=== PATIENT | female | born 1990 | race Hispanic/Latino ===

== ENCOUNTER 2017-08-06 19:06 | Emergency (ER) | payer OTHER ==
--- OUTSIDE RECORDS SUMMARY | 2017-08-06 19:09 | XMS REPORT | Clinical Summary ---
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 Disp. Refills Start End Date Status Date metFORMIN (GLUCOPHAGE) Take 500 mg by mouth 03/09/20 01/03/20 Discontin 500 MG tablet daily . 15 17 ued ADVAIR DISKUS 250-50 Inhale 1 spray by mouth 03/09/20 01/03/20 Discontin mcg/dose diskus inhaler via inhaler daily . 15 17 ued furosemide (LASIX) 20 MG Take 20 mg by mouth 2 01/03/20 Discontin tablet (two) times daily. 17 ued promethazine (PHENERGAN) Take 25 mg by mouth every 01/03/20 Discontin 25 MG tablet 6 (six) hours as needed 17 ued for Nausea. hydrochlorothiazide Take 0.5 tablets (12.5 mg 7 tablet 0 07/11/19 Discontin (HYDRODIURIL) 25 MG total) by mouth daily. 16 17 ued tablet amoxicillin-clavulanate Take 1 tablet by mouth 20 tablet 0 01/03/20 01/13/20 (AUGMENTIN) 875-125 mg every 12 (twelve) hours 17 17 per tablet for 10 days. traMADol (ULTRAM) 50 mg Take 1 tablet (50 mg 20 tablet 0 01/03/20 tablet total) by mouth every 6 17 17 (six) hours as needed for up to 10 days. Max Daily Amount: 200 mg Active Problems Not on file Encounters Date Type Specialty Care Team Description 01/02/2017 Emergency Emergency Medicine Roscoe Fleming, Acute serous otitis media of left ear, recurrence not specified (Primary Dx);Left ear pain after 08/05/2016 Social History Tobacco Use Types Packs/Day Years Used Date Current Every Day Smoker Smokeless Tobacco: Never Used Alcohol Use Drinks/Week oz/Week Comments No Sex Assigned at Date Recorded Not on file Last Filed Vital Signs Vital Sign Reading Time Taken Blood Pressure 124/74 01/02/2017 10:10 AM CDT Pulse 75 01/02/2017 10:10 AM CDT Temperature 36.6 C (97.9 F) 01/02/2017 10:10 AM CDT Respiratory Rate 18 01/02/2017 10:10 AM CDT Oxygen Saturation 97% 01/02/2017 10:10 AM CDT Inhaled Oxygen - - Concentration Weight 91.6 kg (202 lb) 01/02/2017 10:10 AM CDT Height 165.1 cm (5' 5") 01/02/2017 10:10 AM CDT Body Mass Index 33.61 01/02/2017 10:10 AM CDT Plan of Treatment Not on file Results Not on fileafter 08/05/2016
== END 2017-08-06 20:15 | disposition short-term general hospital (02) ==
LOC: ER 19:06
DX: R52 Pain, unspecified (principal)

== ENCOUNTER 2018-08-06 19:24 | Emergency (ER) | payer OTHER ==
[~2018-08-06] VITALS: Ht 162.6 cm; Wt 97.5 kg
--- OUTSIDE RECORDS SUMMARY | 2018-08-06 19:27 | XMS REPORT ---
Author Author [facility] Address Unknown Phone Unavailable Care Team Providers Care Log Tumbler Name Role Phone EMELY MCLEAN Unavailable Unavailable Payers Payer Name Policy Type Policy Number Effective Date Expiration Date Problems This patient has no known problems. Allergies, Adverse Reactions, Alerts Allergy Name Allergy Type Status Severity Reaction(s) Onset Date Inactive Date Treating Clinician Comments Iodine and Iodide Containing Produc DA Active MO 2018-06-24 00:00:00 Latex, Natural Rubber DA Active MO 2018-06-24 00:00:00 Iodine and Iodide Containing Produc DA Active MO 2018-06-07 00:00:00 Latex, Natural Rubber DA Active MO 2018-06-07 00:00:00 Iodine and Iodide Containing Produc DA Active MO 2017-04-08 00:00:00 Latex, Natural Rubber DA Active MO 2017-04-08 00:00:00 MUSTARD DA Active 2015-04-26 00:00:00 Medications This patient has no known medications. Results Test Description Test Time Test Comments Text Results Atomic Results Result Comments - CT ABD PELVIS W/O CONT 2018-06-24 22:24:00 Name: SHERIFGEOVANI C [facility] : 1990 Age/S: 27 / F [address] Unit #: [id number] Loc: [place] [address] Phys: Kristina Rodgers [employer] WORK[employer] Acct: [id number] Dis Date: Status: REG ER PHONE #: [phone] Exam Date: 06/24/20182208 FAX #: [phone] Reason: FLANK PAIN EXAMS: CPT CODE: [id number] CT ABD PELVIS W/O CONT [id number] REASON FOR EXAM: FLANK PAIN EXAM ORDER DATE: 06/24/2018 9:19 PM Ordering Reginaldo: Kristina Rodgers NP PROCEDURE: - CT ABD PELVIS W/O CONT COMPARISON: 06/07/2018 FINDINGS: CT images of the abdomen and pelvis were obtained without IV and without oral contrast at 5mm. Dose reduction techniques were applied The liver, spleen, pancreas are grossly within normal limits. The gallbladder is unremarkable by CT. The urinary bladder is unremarkable. The colon, small bowel, and stomach are within normal limits without evidence of obstruction. The appendix is unremarkable. No evidence of free air or free fluid. The uterus is unremarkable. Bilateral tubal ligation clips present. IMPRESSION: Multiple small (0.1-0.3 cm) nonobstructing bilateral renal stones. No evidence of obstructive uropathy at 2224 Reported and signed by: Ken Vigil M.D. CC: Ana Laura Oliver MD; Kristina Rodgers NP Technologist:Zeenat Garcia RT(R) CTDI: DLP: Trnscb Date/Time: 06/24/2018 (2223) Lavinia Orig Print D/T: S: 06/24/2018 (2226) CTDI: DLP: PAGE 1 Signed Report BASIC METABOLIC PANEL 2018-06-24 21:45:00 SODIUM (test code=NA) 143 mmol/L 136-145 POTASSIUM (test code=K) 3.9 mmol/L 3.5-5.1 CHLORIDE (test code=CL) 110.0 mmol/L 98-107 CARBON DIOXIDE (test code=CO2) 25.0 mmol/L 21-32 ANION GAP (test code=GAP) 11.9 10-20 GLUCOSE (test code=GLU) 86 mg/dL 74-106 BLOOD UREA NITROGEN (test code=BUN) 10 mg/dL 7-18 GLOMERULAR FILTRATION RATE (test code=GFR) > 60 mL/min >=60 Estimated GFR by using Modified MDRD formula.Chronic kidney disease is defined as either kidney damageor GFR <60 mL/min/1.73 m2 for >3 months. CREATININE (test code=CREAT) 0.90 mg/dL 0.55-1.02 Note change in reference range due to change in reagent. BUN/CREATININE RATIO (test code=BUN/CREA) 11.0 10-20 CALCIUM (test code=CA) 8.6 mg/dL 8.5-10.1 HEPATIC FUNCTION [id number] 21:45:00* Test Item Value Reference Range Comments TOTAL PROTEIN (test code=PROT) 7.2 gram/dL 6.4-8.2 ALBUMIN (test code=ALB) 3.3 g/dL 3.4-5.0 GLOBULIN (test code=GLOB) 3.9 gram/dL 2.7-4.2 ALBUMIN/GLOBULIN RATIO (test code=A/G) 0.8 0.75-1.50 BILIRUBIN TOTAL (test code=BILT) 0.20 mg/dL 0.0-1.0 BILIRUBIN DIRECT (test code=BILD) 0.08 mg/dL 0.0-0.20 SGOT/AST (test code=AST) 15 IUnit/L 15-37 SGPT/ALT (test code=ALT) 28 IUnit/L 12-78 ALKALINE PHOSPHATASE TOTAL (test code=ALKP) 54 IUnit/L 45-117 Note change in reference range due to change in reagent. [id number] 21:45:00* Test Item Value Reference Range Comments LIPASE (test code=LIP) 76 U/L 73.0-393.0 HCG SERUM [id number] 21:45:00* Test Item Value Reference Range Comments HCG SERUM BETA (test code=HCG) < 1.0 mIU/mL 0-3 INTERPRETATION:B-HCG LEVELS <5 SHOULD BE CONSIDERED "NEGATIVE." *WHEN BODERLINE RESULTS ARE ENCOUNTERED,PATIENT SAMPLESSHOULD BE REDRAWN 48 HOURS. 0-1 WEEKS AFTER CONCEPTION 5-50 MIU/ML1-2 WEEKS AFTER CONCEPTION 50-500 MIU/ML2-3 WEEKS AFTER CONCEPTION 100 -5,000 MIU/ML3-4 WEEKS AFTER CONCEPTION 500-10,000 MIU/ML4-5 WEEKS AFTER CONCEPTION 1000 -50,000 MIU/ML5-6 WEEKS AFTER CONCEPTION 10,000-100,000 MIU/ML6-8 WEEKS AFTER CONCEPTION 15,000- 200,000 MIU/ML2-3 MONTHS AFTER CONCEPTION 10,000-100,000 MIU/ML BASIC METABOLIC [id number] 21:32:00* Test Item Value Reference Range Comments SODIUM (test code=NA) 143 mmol/L 136-145 POTASSIUM (test code=K) 3.9 mmol/L 3.5-5.1 CHLORIDE (test code=CL) 110.0 mmol/L 98-107 CARBON DIOXIDE (test code=CO2) mmol/L 21-32 ANION GAP (test code=GAP) 10-20 GLUCOSE (test code=GLU) mg/dL 74-106 BLOOD UREA NITROGEN (test code=BUN) mg/dL 7-18 GLOMERULAR FILTRATION RATE (test code=GFR) mL/min >=60 CREATININE (test code=CREAT) mg/dL 0.55-1.02 BUN/CREATININE RATIO (test code=BUN/CREA) 10-20 CALCIUM (test code=CA) mg/dL 8.5-10.1 HEPATIC FUNCTION [id number] 21:32:00* Test Item Value Reference Range Comments TOTAL PROTEIN (test code=PROT) gram/dL 6.4-8.2 ALBUMIN (test code=ALB) g/dL 3.4-5.0 GLOBULIN (test code=GLOB) gram/dL 2.7-4.2 ALBUMIN/GLOBULIN RATIO (test code=A/G) 0.75-1.50 BILIRUBIN TOTAL (test code=BILT) mg/dL 0.0-1.0 BILIRUBIN DIRECT (test code=BILD) mg/dL 0.0-0.20 SGOT/AST (test code=AST) IUnit/L 15-37 SGPT/ALT (test code=ALT) IUnit/L 12-78 ALKALINE PHOSPHATASE TOTAL (test code=ALKP) IUnit/L 45-117 [id number] 21:32:00* Test Item Value Reference Range Comments LIPASE (test code=LIP) U/L 73.0-393.0 HCG SERUM [id number] 21:32:00* Test Item Value Reference Range Comments HCG SERUM BETA (test code=HCG) mIU/mL 0-3 URINALYSIS [id number] 21:18:00* Test Item Value Reference Range Comments UA COLOR (test code=COLU) COLORLESS YELLOW UA APPEARANCE (test code=APPU) CLEAR CLEAR UA GLUCOSE DIPSTICK (test code=DGLUU) NEGATIVE mg/dL NEGATIVE UA BILIRUBIN DIPSTICK (test code=BILU) NEGATIVE mg/dL NEGATIVE UA KETONE DIPSTICK (test code=KETU) Negative mg/dL NEGATIVE UA SPECIFIC GRAVITY (test code=SGU) 1.003 1.001-1.035 UA BLOOD DIPSTICK (test code=JUNG) 2+ (Moderate) NEGATIVE UA PH DIPSTICK (test code=CHRISTIAN) 6.0 5.0-8.0 UA PROTEIN DIPSTICK (test code=PROU) Negative mg/dL NEGATIVE UA UROBILINIOGEN DIPSTICK (test code=URO) NEGATIVE mg/dL NEGATIVE UA NITRITE DIPSTICK (test code=ETHAN) NEGATIVE NEGATIVE UA LEUKOCYTE ESTERASE W REFLEX (test code=LEUUR) NEGATIVE NEGATIVE UA WBC (test code=WBCU) 0-5 #/HPF 0-5 UA RBC (test code=RBCU) 0-2 #/HPF 0-5 Urine Source? Clean CatchCBC W/O [id number] 21:13:00* Test Item Value Reference Range Comments WHITE BLOOD CELL (test code=WBC) 12.7 K/mm3 4.5-12.5 RED BLOOD CELL (test code=RBC) 4.45 mill/mm3 3.7-5.2 HEMOGLOBIN (test code=HGB) 12.6 gram/dL 11.5-15.5 HEMATOCRIT (test code=HCT) 39.7 % 36.0-46.0 MEAN CELL VOLUME (test code=MCV) 89.2 fL 80-98 MEAN CELL HGB (test code=MCH) 28.3 picogram 27.0-33.0 MEAN CELL HGB CONCETRATION (test code=MCHC) 31.7 gram/dL 33.0-36.0 RED CELL DISTRIBUTION WIDTH (test code=RDW) 12.6 % 11.6-16.2 PLATELET COUNT (test code=PLT) 338 K/mm3 150-450 MEAN PLATELET VOLUME (test code=MPV) 10.0 fL 6.7-11.0 CBC W/O [id number] 21:11:00* Test Item Value Reference Range Comments WHITE BLOOD CELL (test code=WBC) K/mm3 4.5-12.5 RED BLOOD CELL (test code=RBC) mill/mm3 3.7-5.2 HEMOGLOBIN (test code=HGB) 12.6 gram/dL 11.5-15.5 HEMATOCRIT (test code=HCT) 39.7 % 36.0-46.0 MEAN CELL VOLUME (test code=MCV) fL 80-98 MEAN CELL HGB (test code=MCH) picogram 27.0-33.0 MEAN CELL HGB CONCETRATION (test code=MCHC) gram/dL 33.0-36.0 RED CELL DISTRIBUTION WIDTH (test code=RDW) % 11.6-16.2 PLATELET COUNT (test code=PLT) K/mm3 150-450 MEAN PLATELET VOLUME (test code=MPV) fL 6.7-11.0 - XR L-SPINE 2/3 [id number] 15:37:00 FAX: Kristina Rodgers [place]: B St: REG Name: GEOVANI JUAREZ [facility] : [birth year] Age/S: 27/F [address] [facility] Unit #: [id number] Loc: [place] [address] Phys: Kristina Rodgers [employer] Acct: [id number] Dis Date: Status: REG ER PHONE #: [phone] Exam Date: 06/19/2018 1516 FAX #: [phone] Reason: PAIN S/P FALL EXAMS: CPT CODE: [id number] XR L-SPINE 2/3 VIEWS 39087 HISTORY: PAIN S/P FALL TECHNIQUE: AP, lateral, and lumbosacral views of the lumbar spine. FINDINGS: No acute fracture or subluxation. Vertebral body alignment is satisfactory. Vertebral body heights are preserved. Disc spaces are pres erved. No evident paraspinal soft tissue contour abnormality. Surgical cli ps projecting over the lower abdomen may represent tubal ligation clips. IMPRESSION: Negative radiographic examination of the lumbar spine. Electronically Signed by Patrice Chang MD on 01/2019 at 1535 Reported and signed by: Patrice Chang MD CC: Kristina Rodgers NP Technologist: Zeyad Lezama RT(R) Trnscrd Date/Time/By: 06/19/2018 (2956) : By: [email or web address] Orig Print D/T: S: (3515) PAGE 1 Signed Rep ort - XR C-SPINE 2-3 [id number] 15:36:00 FAX: Kristina Rodgers [place]: B St: REG Name: GEOVANI JUAREZ [facility] : [birth year] Age/S: 27/F [address] Unit #: [id number] Loc: [place] [address] Phys: Kristina Rodgers ie [employer] Acct: [id number] Dis Date: Status: REG ER PHONE #: [phone] Exam Date: 06/19/2018 1516 FAX #: [phone] Reason: PAIN S/P FALL EXAMS: CPT CODE: [id number] XR C-SPINE 2-3 VIEWS 06411 HISTORY: PAIN S/P FALL TECHNIQUE: AP, lateral, and open mouth odontoid views of the cervical s pine. COMPARISON: None FINDINGS: Crani ocervical and cervicothoracic articulations are appropriate. Vertebral bod y alignment is satisfactory. Vertebral body heights are preserved. Disc sp aces are preserved. No prevertebral soft tissue swelling. Lung apices are clear. IMPRESSION: 1. Negative cervica l spine x-ray. at 1536 Reported and signed by: Patrice Chang MD CC: Kristina Rodgers NP Technol ogist: Zeyad Teja RT(R) Trnscrd Date/Time/ By: 06/19/2018 (1530) : By: [email or web address] Orig Print D/T: S: 06/19/2018 (2 556) PAGE 1 Signed Report - XR WRIST 3 + V [id number] 15:25:00 FAX: Kristina Rodgers [place]: B St: REG Name: GEOVANI JUAREZ [facility] : [birth year] Age/S: 27/F [address] Unit #: [id number] Loc: [place] [address] Phys: Kristina Rodgers [employer] Acct: [id number] Dis Date: Status: REG ER PHONE #: [phone] Exam Date: 06/19/2018 1516 FAX #: [phone] Reason: PAIN S/P FALL EXAMS: CPT CODE: [id number] XR WRIST 3 + V RT [id number] REASON FOR EXAM: PAIN S/P FALL EXAM ORDER DATE: 06/19/2018 2:21 PM Ordering M.DLianet: Kristina Rodgers NP PROCEDURE: - XR HAND 3 + V RT, - XR WRIST 3 + V RT Comparison: Radiographs of the right hand June 02, 2015 FINDINGS: No acute fracture is seen. There is mild residual deformity of the fifth metacarpal from the patient's prior boxer fracture. The joints are appropriately aligned. Soft tissues are grossly within normal limits. IMPRESSION: No acute fracture or dislocation in the right hand or right wrist. Subtle deformity of the f ifth metacarpal from the patient's prior boxer fracture. Sowmya ctronically Signed by Patrice Chang MD on 06/19/2018 at 1526 Reported and signed by: Patrice Chang MD CC: Kristina Rodgers NP Technologist: Zeyad Lezama RT(R) Trnscrd Date/Time/By: 06/19/2018 (9281) : By: Vanessa [email or web address] Orig Print D/T: S: 06/19/2018 (4117) PAG E 1 Signed Report - XR HAND 3 + V [id number] 15:25:00 FAX: Kristina Rodgers [place]: B St: REG Name: GEOVANI JUAREZ [facility] : [birth year] Age/S: 27/F [address] Unit #: [id number] Loc: [place] [address] Phys: Kristina Rodgers [employer] Acct: [id number] Dis Date: Status: REG ER PHONE #: [phone] Exam Date: 06/19/2018 1516 FAX #: [phone] Reason: PAIN S/P FALL EXAMS: CPT CODE: [id number] XR HAND 3 + V RT [id number] REASON FOR EXAM: PAIN S/P FALL EXAM ORDER DATE: 06/19/2018 2:21 PM Ordering M.DLianet: Kristina Rodgers NP PROCEDURE: - XR HAND 3 + V RT, - XR WRIST 3 + V RT Comparison: Radiographs of the right hand June 02, 2015 FINDINGS: No acute fracture is seen. There is mild residual deformity of the fifth metacarpal from the patient's prior boxer fracture. The joints are appropriately aligned. Soft tissues are grossly within normal limits. IMPRESSION: No acute fracture or dislocation in the right hand or right wrist. Subtle deformity of the f ifth metacarpal from the patient's prior boxer fracture. Sowmya ctronically Signed by Patrice Chang MD on 06/19/2018 at 1525 Reported and signed by: Patrice Chang MD CC: Kristina Rodgers NP Technologist: Zeyad Lezama RT(R) Trnscrd Date/Time/By: 06/19/2018 (8673) : By: Vanessa [email or web address] Orig Print D/T: S: 06/19/2018 (7632) PAG E 1 Signed Report - CT ABD PELVIS [id number] 17:35:00 Name: GEOVANI GORMAN [facility] : 1990 Age/S: 27 / F [address] Unit #: [id number] Loc: [place] [address] Phys: Tristan Vang NP Acct: [id number] Dis Date: Status: REG ER PHONE #: [phone] Exam Date: 06/07/2018 1709 FAX #: [phone] Reason: RLQ PAIN EXAMS: CPT CODE: [id number] CT ABD PELVIS W/CONT 75861 EXAM: CT of the abdomen and pelvis with contrast; INFORMATION: Right lower quadrant pain; TECHNIQUE AND FINDINGS: CT dose reduction protocol; 5 mm cuts through the abdomen and pelvis during and after intravenous infusion of contrast material. The right and spleen of normal size and shape; no focal lesions. Homogeneous parenchymal enhancement. No abnormalities of the biliary system. Pancreas and adrenal glands are unremarkable. The early postcontrast study shows a 3 mm density in the right kidney which is suspicious for nonobstructing calyceal stone. There is a 13 mm right renal cyst. Otherwise normal parenchymal enhancement; no hydronephrosis. No acute bowel abnormalities. No pelvic mass lesions. Status post tubal ligation. Lung bases are clear. IMPRESSION: 1. No acute abdominal or pelvic abnormalities. 2. Suspicion of small nono bstructing calyceal stone in the right kidney. 3. Small right re nal cyst. at 0416 Reported and signed by: Bernardino Lora M.D. CC: Ga Pitt MD; Tristan Vang NP Technologist:KOREY CHEN, RT(R) CT CTDI: DLP: Trnscb Date/Time: 06/07/2018 (1735) Ethan Orig Print D/T: S: 06/07/2018 (1738) CTDI: DLP: PAGE 1 Signed Report - US TRANSVAGINAL NON [id number] 17:21:00 Name: GEOVANI GORMAN [facility] : 1990 Age/S: 27 / F [facility]: [id number] Loc: [place] [address] Phys: Tristan Vang NP Acct: [id number] Dis Date: Status: REG ER PHONE #: [phone] Exam Date: 06/07/2018 1650 FAX #: [phone] Reason: Pelvic Pain EXAMS: CPT CODE: [id number] [place] [address] EXAM: Pelvic and transvaginal ultrasound and duplex sonography; INFORMATION: Abdominal pain and pelvic pain; TECHNIQUE AND FINDINGS: Transabdominal and transvaginal grayscale imaging was combined with color Doppler sonography and spectral analysis. The uterus is of normal size and shape; it measures 10.1 x 4.4 x 5.3 cm. Unremarkable endometrial stripe, measuring 6 mm in thickness. No fluid collection within the endometrial canal. Nabothian cysts are seen in the cervix. The left ovary is of normal size and shape. It measures 3.3 x 2.1 x 3 cm. It shows normal flow pattern on Doppler exam. The right ovary was not seen. No solid or cystic adnexal lesion. No free fluid in the cul-de-sac. IMPRESSION: 1. Right ovary not seen but no evidence of adnexal lesion. 2. Otherwise unremarkable pelvic ultrasound. at 1721 Reported and signed by: Bernardino Lora M.D. CC: Tristan Vang NP Technologist: Elissa Morris Trnwib Date/Time: 06/07/2018 (1721) Ethan Orig Print D/T: S: 06/07/2018 (1725) Probe: [id number] PAGE 1 Signed Report - DUP AB/PEL/SC [id number] 17:21:00 Name: GEOVANI GORMAN [facility] : 1990 Age/S: 27 / F [address] Unit #: [id number] Loc: [place] [address] Phys: Denisha Vang NP Acct: [id number] Di s Date: Status: REG ER PHONE #: Exam Date: 06/07/2018 1650 FAX #: [phone] Reason: PELVIC PAIN EXAMS: CPT CODE: [id number] DUP AB/PEL/SC COMP 84648 EXAM: Pelvic and transvag inal ultrasound and duplex sonography; INFORMATION: Abdominal pain and pelvic pain; TECHNIQUE AND FINDINGS: Transabdominal and transvaginal grayscale imaging was combined with color Doppler sonography and spectral analysis. The uterus is of normal size and shape; it measures 10.1 x 4.4 x 5.3 cm. Unremarkable endometrial stripe, measuring 6 mm in thickness. No fluid collection within the endometrial canal. N abothian cysts are seen in the cervix. The left ovary is of normal size an d shape. It measures 3.3 x 2.1 x 3 cm. It shows normal flow pattern on Dop pler exam. The right ovary was not seen. No solid or cystic adnexal lesion . No free fluid in the cul-de-sac. IMPRESSION: 1. Right ovary not seen but no evidence of adnexal lesion. 2. Otherwise unr emarkable pelvic ultrasound. at 1721 Reported and signed by: Bernardino Lora M.D. CC: Tristan Vang NP Technologist: Elissa Morris Trnscb Date/Time: 019 (172) [email or web address] Orig Print D/T: S: 06/07/2018 (1725) Probe: PAGE 1 Signed Report - US PELVIS [id number] 17:21:00 Name: SHERIFDANNYGEOVANI C [facility] : 1990 Age/S: 27 / F [address] Unit #: [id number] Loc: [place] [address] Phys: Denisha Vang NP Acct: [id number] Di s Date: Status: REG ER PHONE #: Exam Date: 06/07/2018 1650 FAX #: Reason: PELVIC PAIN EXAMS: CPT CODE: [id number] US PELVIS COM PLETE 28211 EXAM: Pelvic and transvag inal ultrasound and duplex sonography; INFORMATION: Abdominal pain and pelvic pain; TECHNIQUE AND FINDINGS: Transabdominal and transvaginal grayscale imaging was combined with color Doppler sonography and spectral analysis. The uterus is of normal size and shape; it measures 10.1 x 4.4 x 5.3 cm. Unremarkable endometrial stripe, measuring 6 mm in thickness. No fluid collection within the endometrial canal. N abothian cysts are seen in the cervix. The left ovary is of normal size an d shape. It measures 3.3 x 2.1 x 3 cm. It shows normal flow pattern on Dop pler exam. The right ovary was not seen. No solid or cystic adnexal lesion . No free fluid in the cul-de-sac. IMPRESSION: 1. Right ovary not seen but no evidence of adnexal lesion. 2. Otherwise unr emarkable pelvic ultrasound. at 1721 Reported and signed by: Bernardino Lora M.D. CC: Tristan Vang NP Technologist: Elissa Morris Trnwib Date/Time: 019 (1721) [email or web address] Orig Print D/T: S: 06/07/2018 (9545) Probe: PAGE 1 Signed Report URINALYSIS [id number] 15:58:00* Test Item Value Reference Range Comments UA COLOR (test code=COLU) STRAW YELLOW UA APPEARANCE (test code=APPU) CLEAR CLEAR UA GLUCOSE DIPSTICK (test code=DGLUU) NEGATIVE mg/dL NEGATIVE UA BILIRUBIN DIPSTICK (test code=BILU) NEGATIVE mg/dL NEGATIVE UA KETONE DIPSTICK (test code=KETU) Negative mg/dL NEGATIVE UA SPECIFIC GRAVITY (test code=SGU) 1.009 1.001-1.035 UA BLOOD DIPSTICK (test code=JUNG) Negative NEGATIVE UA PH DIPSTICK (test code=CHRISTIAN) 6.0 5.0-8.0 UA PROTEIN DIPSTICK (test code=PROU) Negative mg/dL NEGATIVE UA UROBILINIOGEN DIPSTICK (test code=URO) NEGATIVE mg/dL NEGATIVE UA NITRITE DIPSTICK (test code=ETHAN) NEGATIVE NEGATIVE UA LEUKOCYTE ESTERASE W REFLEX (test code=LEUUR) NEGATIVE NEGATIVE UA WBC (test code=WBCU) 0-5 #/HPF 0-5 UA RBC (test code=RBCU) 0-2 #/HPF 0-5 UA EPITHELIAL CELLS (test code=EPIU) FEW per HPF FEW UA BACTERIA (test code=BACU) FEW #/HPF NONE UA MUCUS (test code=MUCU) FEW #/LPF FEW Urine Source? Clean CatchURINALYSIS [id number] 15:57:00* Test Item Value Reference Range Comments UA COLOR (test code=COLU) STRAW YELLOW UA APPEARANCE (test code=APPU) CLEAR CLEAR UA GLUCOSE DIPSTICK (test code=DGLUU) NEGATIVE mg/dL NEGATIVE UA BILIRUBIN DIPSTICK (test code=BILU) NEGATIVE mg/dL NEGATIVE UA KETONE DIPSTICK (test code=KETU) Negative mg/dL NEGATIVE UA SPECIFIC GRAVITY (test code=SGU) 1.009 1.001-1.035 UA BLOOD DIPSTICK (test code=JUNG) Negative NEGATIVE UA PH DIPSTICK (test code=CHRISTIAN) 6.0 5.0-8.0 UA PROTEIN DIPSTICK (test code=PROU) Negative mg/dL NEGATIVE UA UROBILINIOGEN DIPSTICK (test code=URO) NEGATIVE mg/dL NEGATIVE UA NITRITE DIPSTICK (test code=ETHAN) NEGATIVE NEGATIVE UA LEUKOCYTE ESTERASE W REFLEX (test code=LEUUR) NEGATIVE NEGATIVE UA WBC (test code=WBCU) 0-5 #/HPF 0-5 UA RBC (test code=RBCU) 0-2 #/HPF 0-5 UA EPITHELIAL CELLS (test code=EPIU) FEW per HPF FEW Urine Source? Clean CatchURINALYSIS [id number] 15:50:00* Test Item Value Reference Range Comments UA COLOR (test code=COLU) STRAW YELLOW UA APPEARANCE (test code=APPU) CLEAR CLEAR UA GLUCOSE DIPSTICK (test code=DGLUU) NEGATIVE mg/dL NEGATIVE UA BILIRUBIN DIPSTICK (test code=BILU) NEGATIVE mg/dL NEGATIVE UA KETONE DIPSTICK (test code=KETU) Negative mg/dL NEGATIVE UA SPECIFIC GRAVITY (test code=SGU) 1.009 1.001-1.035 UA BLOOD DIPSTICK (test code=JUNG) Negative NEGATIVE UA PH DIPSTICK (test code=CHRISTIAN) 6.0 5.0-8.0 UA PROTEIN DIPSTICK (test code=PROU) Negative mg/dL NEGATIVE UA UROBILINIOGEN DIPSTICK (test code=URO) NEGATIVE mg/dL NEGATIVE UA NITRITE DIPSTICK (test code=ETHAN) NEGATIVE NEGATIVE UA LEUKOCYTE ESTERASE W REFLEX (test code=LEUUR) NEGATIVE NEGATIVE UA WBC (test code=WBCU) per HPF 0-5 Urine Source? Clean CatchBASIC METABOLIC [id number] 15:00:00* Test Item Value Reference Range Comments SODIUM (test code=NA) 138 mmol/L 136-145 POTASSIUM (test code=K) 4.2 mmol/L 3.5-5.1 CHLORIDE (test code=CL) 106.0 mmol/L 98-107 CARBON DIOXIDE (test code=CO2) 27.0 mmol/L 21-32 ANION GAP (test code=GAP) 9.2 10-20 GLUCOSE (test code=GLU) 99 mg/dL 74-106 BLOOD UREA NITROGEN (test code=BUN) 9 mg/dL 7-18 GLOMERULAR FILTRATION RATE (test code=GFR) > 60 mL/min >=60 Estimated GFR by using Modified MDRD formula.Chronic kidney disease is defined as either kidney damageor GFR <60 mL/min/1.73 m2 for >3 months. CREATININE (test code=CREAT) 0.80 mg/dL 0.55-1.02 Note change in reference range due to change in reagent. BUN/CREATININE RATIO (test code=BUN/CREA) 11.5 10-20 CALCIUM (test code=CA) 9.5 mg/dL 8.5-10.1 HEPATIC FUNCTION [id number] 15:00:00* Test Item Value Reference Range Comments TOTAL PROTEIN (test code=PROT) 7.6 gram/dL 6.4-8.2 ALBUMIN (test code=ALB) 3.5 g/dL 3.4-5.0 GLOBULIN (test code=GLOB) 4.1 gram/dL 2.7-4.2 ALBUMIN/GLOBULIN RATIO (test code=A/G) 0.9 0.75-1.50 BILIRUBIN TOTAL (test code=BILT) 0.30 mg/dL 0.0-1.0 BILIRUBIN DIRECT (test code=BILD) < 0.05 mg/dL 0.0-0.20 SGOT/AST (test code=AST) 25 IUnit/L 15-37 SGPT/ALT (test code=ALT) 46 IUnit/L 12-78 ALKALINE PHOSPHATASE TOTAL (test code=ALKP) 62 IUnit/L 45-117 Note change in reference range due to change in reagent. [id number] 15:00:00* Test Item Value Reference Range Comments LIPASE (test code=LIP) 93 U/L 73.0-393.0 HCG SERUM [id number] 15:00:00* Test Item Value Reference Range Comments HCG SERUM QUAL (test code=HCGQL) NEGATIVE NEGATIVE This HCGQL test is NOT applicable for MALE patients.Check with nurse about probable order error.If Tumor Marker Test needed, nurse should order test "HCGTU"(Test #[id number]) BASIC METABOLIC [id number] 14:58:00* Test Item Value Reference Range Comments SODIUM (test code=NA) 138 mmol/L 136-145 POTASSIUM (test code=K) 4.2 mmol/L 3.5-5.1 CHLORIDE (test code=CL) 106.0 mmol/L 98-107 CARBON DIOXIDE (test code=CO2) mmol/L 21-32 ANION GAP (test code=GAP) 10-20 GLUCOSE (test code=GLU) mg/dL 74-106 BLOOD UREA NITROGEN (test code=BUN) mg/dL 7-18 GLOMERULAR FILTRATION RATE (test code=GFR) mL/min >=60 CREATININE (test code=CREAT) mg/dL 0.55-1.02 BUN/CREATININE RATIO (test code=BUN/CREA) 10-20 CALCIUM (test code=CA) mg/dL 8.5-10.1 HEPATIC FUNCTION [id number] 14:58:00* Test Item Value Reference Range Comments TOTAL PROTEIN (test code=PROT) gram/dL 6.4-8.2 ALBUMIN (test code=ALB) g/dL 3.4-5.0 GLOBULIN (test code=GLOB) gram/dL 2.7-4.2 ALBUMIN/GLOBULIN RATIO (test code=A/G) 0.75-1.50 BILIRUBIN TOTAL (test code=BILT) mg/dL 0.0-1.0 BILIRUBIN DIRECT (test code=BILD) mg/dL 0.0-0.20 SGOT/AST (test code=AST) IUnit/L 15-37 SGPT/ALT (test code=ALT) IUnit/L 12-78 ALKALINE PHOSPHATASE TOTAL (test code=ALKP) IUnit/L 45-117 [id number] 14:58:00* Test Item Value Reference Range Comments LIPASE (test code=LIP) U/L 73.0-393.0 HCG SERUM [id number] 14:58:00* Test Item Value Reference Range Comments HCG SERUM QUAL (test code=HCGQL) NEGATIVE NEGATIVE This HCGQL test is NOT applicable for MALE patients.Check with nurse about probable order error.If Tumor Marker Test needed, nurse should order test "HCGTU"(Test #550.24652) BASIC METABOLIC [id number] 14:48:00* Test Item Value Reference Range Comments SODIUM (test code=NA) 138 mmol/L 136-145 POTASSIUM (test code=K) 4.2 mmol/L 3.5-5.1 CHLORIDE (test code=CL) 106.0 mmol/L 98-107 CARBON DIOXIDE (test code=CO2) mmol/L 21-32 ANION GAP (test code=GAP) 10-20 GLUCOSE (test code=GLU) mg/dL 74-106 BLOOD UREA NITROGEN (test code=BUN) mg/dL 7-18 GLOMERULAR FILTRATION RATE (test code=GFR) mL/min >=60 CREATININE (test code=CREAT) mg/dL 0.55-1.02 BUN/CREATININE RATIO (test code=BUN/CREA) 10-20 CALCIUM (test code=CA) mg/dL 8.5-10.1 HEPATIC FUNCTION [id number] 14:48:00* Test Item Value Reference Range Comments TOTAL PROTEIN (test code=PROT) gram/dL 6.4-8.2 ALBUMIN (test code=ALB) g/dL 3.4-5.0 GLOBULIN (test code=GLOB) gram/dL 2.7-4.2 ALBUMIN/GLOBULIN RATIO (test code=A/G) 0.75-1.50 BILIRUBIN TOTAL (test code=BILT) mg/dL 0.0-1.0 BILIRUBIN DIRECT (test code=BILD) mg/dL 0.0-0.20 SGOT/AST (test code=AST) IUnit/L 15-37 SGPT/ALT (test code=ALT) IUnit/L 12-78 ALKALINE PHOSPHATASE TOTAL (test code=ALKP) IUnit/L 45-117 [id number] 14:48:00* Test Item Value Reference Range Comments LIPASE (test code=LIP) U/L 73.0-393.0 HCG SERUM [id number] 14:48:00* Test Item Value Reference Range Comments HCG SERUM QUAL (test code=HCGQL) NEGATIVE CBC W/O [id number] 14:34:00* Test Item Value Reference Range Comments WHITE BLOOD CELL (test code=WBC) 12.5 K/mm3 4.5-12.5 RED BLOOD CELL (test code=RBC) 4.95 mill/mm3 3.7-5.2 HEMOGLOBIN (test code=HGB) 13.8 gram/dL 11.5-15.5 HEMATOCRIT (test code=HCT) 44.8 % 36.0-46.0 MEAN CELL VOLUME (test code=MCV) 90.5 fL 80-98 MEAN CELL HGB (test code=MCH) 27.9 picogram 27.0-33.0 MEAN CELL HGB CONCETRATION (test code=MCHC) 30.8 gram/dL 33.0-36.0 RED CELL DISTRIBUTION WIDTH (test code=RDW) 12.6 % 11.6-16.2 PLATELET COUNT (test code=PLT) 375 K/mm3 150-450 MEAN PLATELET VOLUME (test code=MPV) 10.0 fL 6.7-11.0 URINALYSIS W/ REFLEX URINE [id number] 00:25:00* Test Item Value Reference Range Comments COLOR (BEAKER) (test nuir=732) Yellow CLARITY (BEAKER) (test rlck=899) Clear SPECIFIC GRAVITY UA (BEAKER) (test buga=136) >= 1.001-1.035 PH UA (BEAKER) (test kxis=588) 6.0 5.0-8.0 PROTEIN UA (BEAKER) (test ldgy=072) Negative Negative GLUCOSE UA (BEAKER) (test vbic=542) Negative Negative KETONES UA (BEAKER) (test psba=545) Negative Negative BILIRUBIN UA (BEAKER) (test opml=734) Negative Negative BLOOD UA (BEAKER) (test spto=293) Negative Negative NITRITE UA (BEAKER) (test okzb=321) Negative Negative LEUKOCYTE ESTERASE UA (BEAKER) (test gfke=206) Negative Negative UROBILINOGEN UA (BEAKER) (test vujx=795) 0.2 mg/dL 0.2-1.0 BACTERIA (BEAKER) (test qwvd=481) None Seen MUCUS (BEAKER) (test sehy=3269) Few RBC UA-MANUAL (BEAKER) (test xlxb=1063) <5 /HPF WBC UA-MANUAL (BEAKER) (test kega=3687) <5 /HPF SQUAMOUS EPITHELIAL MANUAL (BEAKER) (test xtvg=6197) <5 /HPF SOURCE(BEAKER) (test mluc=0912) RAPID DRUG SCREEN, [id number] 00:20:00* Test Item Value Reference Range Comments METHAMPHETAMINE SCREEN (BEAKER) (test givr=9453) Negative Negative BARBITURATE URINE (BEAKER) (test etfl=643) Negative Negative BENZODIAZEPINE SCREEN URINE (BEAKER) (test ozdr=486) Negative Negative COCAINE (METAB.) SCREEN (BEAKER) (test aeaz=0427) Negative Negative METHADONE SCREEN (BEAKER) (test nrpy=4582) Negative Negative OPIATE SCREEN URINE (BEAKER) (test jrtu=626) Negative Negative CANNABINOID SCREEN URINE (BEAKER) (test fwma=099) Negative Negative TRICYCLIC SCREEN (BEAKER) (test uhto=2686) Negative Negative AMPH/METHAMPH SCREEN (BEAKER) (test jhbi=5968) Negative Negative AMPHETAMINE SCREEN URINE (BEAKER) (test jodo=925) Negative Negative PHENCYCLIDINE SCREEN URINE (BEAKER) (test kjbo=724) Negative Negative OXYCODONE SCREEN URINE (BEAKER) (test qbqd=5423) Negative Negative [facility].Methamphetamine 1000 ng/mLCocaine 300 ng/mLCannabinoid 50 ng/mLBenzodiazepine 300 ng/mLTricyclic 1000 ng/mLBarbiturate 300 ng/mLPhencyclidine 25 ng/m LAmphetamine 1000 ng/mLOpiate 300 ng/mLMethadone 300 ng/mLThis assay provides an unconfirmed qualitative test result for the cl inical management of patients in emergency situations. Chain of custody not main tained. Some jbsd-qkj-pbofqdi medications, as well as adulterants, may cause marcelo ccurate results. Clinical correlation should be applied. A more comprehensive dr ug screen or confirmation of a detected drug may be performed upon request. SCREEN, [id number] 00:18:00* Test Item Value Reference Range Comments TEST URINE (BEAKER) (test umfu=196) Negative
--- OUTSIDE RECORDS SUMMARY | 2018-08-06 19:27 | XMS REPORT | Clinical Summary ---
Author Author [facility] Address Unknown Phone Unavailable Care Team Providers Care Faculty Research Assistant Name Role Phone Ricardo Ortiz PCP Unavailable Allergies Comments Active Allergy Reactions Severity Noted Date Iodine And Iodide Swelling High 02/27/2015 Containing Products swelling Latex Other (See High 02/27/2015 Comments) Medications End Date Status Medication Sig Dispensed Refills Start Date Active albuterol HFA (VENTOLIN Inhale 1 puff 0 HFA) 90 mcg/actuation by mouth via inhaler inhaler every 6 (six) hours as needed for Wheezing. 12/08/2017 ondansetron (ZOFRAN-ODT) Take 1 tablet 20 tablet 0 4 MG disintegrating (4 mg total) 8 tablet by mouth every 8 (eight) hours as needed for Nausea for up to 7 days. Active Problems Not on file Encounters Care Team Description Date Type Specialty Ino, Karen Childs DO Weakness (Primary Dx); Other fatigue; Nausea 11/30/2017 Emergency Emergency Medicine - 12/01/2017 after 08/05/2017 Social History Date Tobacco Use Types Packs/Day Years Used Current Every Day Smoker Smokeless Tobacco: Never Used Alcohol Use Drinks/Week oz/Week Comments No Sex Assigned at Date Recorded Not on file Industry Job Start Date Occupation Not on file Not on file Not on file Travel End Travel History Travel Start No recent travel history available. Last Filed Vital Signs Time Taken Vital Sign Reading 12/01/2017 12:41 AM CDT Blood Pressure 114/75 12/01/2017 12:41 AM CDT Pulse 86 11/30/2017 11:19 PM CDT Temperature 37.4 C (99.3 F) 12/01/2017 12:41 AM CDT Respiratory Rate 18 12/01/2017 12:41 AM CDT Oxygen Saturation 97% - Inhaled Oxygen - Concentration 11/30/2017 11:19 PM CDT Weight 92.5 kg (204 lb) 11/30/2017 11:19 PM CDT Height 162.6 cm (5' 4") 11/30/2017 11:19 PM CDT Body Mass Index 35.02 Plan of Treatment Not on file Procedures Comments Procedure Name Priority Date/Time Associated Diagnosis RAPID DRUG SCREEN, URINE STAT 12/01/2017 12:07 AM CDT SCREEN, URINE STAT 12/01/2017 12:07 AM CDT URINALYSIS W/ REFLEX STAT 12/01/2017 URINE CULTURE 12:07 AM CDT after 08/05/2017 Results * Urinalysis w/Microscopic + Reflex to Culture (12/01/2017 12:07 AM CDT) Color, UA Yellow [facility] Clarity, UA Clear [facility] Specific Pelzer, UA >=1.030 1.001 - 1.035 [facility] pH, UA 6.0 5.0 - 8.0 [facility] Protein, UA Negative Negative [facility] Glucose, UA Negative Negative [facility] Ketones, UA Negative Negative [facility] Bilirubin, UA Negative Negative [facility] Blood, UA Negative Negative [facility] Nitrite, UA Negative Negative [facility] Leukocytes, UA Negative Negative [facility] Urobilinogen, UA 0.2 0.2 - 1.0 mg/dL [facility] [place] Bacteria, UA None Seen [facility] [place] Mucus Few [facility], [facility] RBC, UA <5 /HPF [facility] WBC, UA <5 /HPF [facility] SQUAMOUS EPITHELIAL <5 /HPF [facility] Specimen Source [facility] Specimen Urine - Urine, Clean Catch Performing Organization Address City/State/Zipcomi Phone Number [facility] [id number] [place] [address] [facility], [facility] * Rapid drug screen, urine (12/01/2017 12:07 AM CDT) Methamphetamine Screen Negative Negative [facility] Barbiturate Screen Negative Negative [facility] Benzodiazepine Screen Negative Negative [facility], [facility] Cocaine (Metab.) Screen Negative Negative [facility], [facility] Methadone Screen Negative Negative [facility] Opiate Screen Negative Negative [facility], [facility] Cannabinoid Screen Negative Negative [facility] Tricyclic Screen Negative Negative [facility] Amph/Methamph Screen Negative Negative [facility], [facility] Amphetamine Screen Negative Negative [facility], [facility] Phencyclidine Screen Negative Negative [facility] [place] Oxycodone Screen Negative Negative [facility] [place] Specimen Urine - Urine, Clean Catch Narrative Performed At [facility] Methamphetamine 1000 ng/mL [facility] [id number] ng/mL [facility] Cannabinoid 50 ng/mL [facility] [place], Benzodiazepine 300 ng/mL [facility] Tricyclic 1000 ng/mL [id number] ng/mL Phencyclidine 25 ng/mL Amphetamine 1000 ng/mL Opiate 300 ng/mL [id number] ng/mL This assay provides an unconfirmed qualitative test result for the clinical management of patients in emergency situations. Chain of custody not maintained. Some nkjj-knr-nqhvgos medications, as well as adulterants, may cause inaccurate results. Clinical correlation should be applied. A more comprehensive drug screen or confirmation of a detected drug may be performed upon request. Performing Organization Address City/[facility]/Zipcode Phone Number [facility] [phone] [place] [address] [facility], [facility] * Screen, urine (12/01/2017 12:07 AM CDT) Preg Test, Ur Negative [facility] Specimen Urine - Urine, Clean Catch Performing Organization Address City/State/Zipcode Phone Number [facility] [address] [place] [address] [facility] after 08/05/2017 Insurance Payer Benefit Subscriber ID Type Phone Address Plan / Group MEDICAID MEDICAID xxxxxxxxx Medicaid [place]
[2018-08-06 21:34] VITALS: BP 129/95
== END 2018-08-06 21:40 | disposition home or self-care (01) ==
LOC: ER 19:24
DX: M54.6 Pain in thoracic spine (principal); M54.5 Low back pain; S23.3XXA Sprain of ligaments of thoracic spine, initial encounter; S33.5XXA Sprain of ligaments of lumbar spine, initial encounter; V43.52XA Car driver injured in collision with other type car in traffic accident, initial encounter; Y92.488 Other paved roadways as the place of occurrence of the external cause; J45.909 Unspecified asthma, uncomplicated; F41.9 Anxiety disorder, unspecified
CPT/HCPCS: 99282